=== PATIENT | male | born 1985 | race Caucasian/White ===

== ENCOUNTER 2018-11-04 23:48 | Emergency (ER) | payer BC, MEDICAID ==
[~2018-11-04] VITALS: Ht 180.3 cm; Wt 121.3 kg
[2018-11-05] VITALS: BP 149/89
[2018-11-05] MEDS ORDERED: CARB200T PO (00:12)
[2018-11-05] MEDS ORDERED: RISP3TAB3 PO (00:12)
== END 2018-11-05 00:21 | disposition home or self-care (01) ==
LOC: ER 23:50
DX: F31.9 Bipolar disorder, unspecified (principal); Z76.0 Encounter for issue of repeat prescription
CPT/HCPCS: 99283